=== PATIENT | female | born 1970 | race Caucasian/White ===

== ENCOUNTER → 2017-10-15 | Outpatient (CLI) | payer BC ==
[~2017-10-15] MED LIST: CYCL0.05OP BOTHEYES; ESCITALOPRAM OX20 MG PO; HYDSUL200; LEVO.5OPSO; LEVSOD125 PO; NITR100CA PO; OMEPRAZOLE MAGN20 MG PO; TELM20; TELMISARTAN40 MG PO
[2017-10-18 15:11] LABS: HPV Genotype 16 Not Detected (NOTDET); HPV Genotype 18 Not Detected (NOTDET)
[2017-11-03 09:26] LABS: HPV High Risk Other Not Detected (NOTDET)
== END | disposition home or self-care (01) ==
LOC: LAB 15:04
PROVIDERS: Obstetrics & Gynecology Gynecology
DX: Z12.4 Encounter for screening for malignant neoplasm of cervix (principal)
CPT/HCPCS: 87624; G0123

== ENCOUNTER 2019-02-02 12:31 | Day surgery (SDC) | payer BC ==
[~2019-02-02] VITALS: Ht 172.7 cm; Wt 87.5 kg
[~2019-02-02 12:31] MED LIST changes: +ABAT250V; +ESCI10 PO; +HYDSUL200 PO; +Mirapex0.25 MG PO; +SYNTHROID0.2 MG PO; +SYNTHROID100 MC2 PO; +VITAMIN D35000 UNI1 PO
--- NOTE | 2019-02-02 15:02 | NUR ---
02/02/19 1501 Dilcia Albarran V PT REPORTS PAIN FOR WHICH SHE HAS BEEN MEDICATED FOR PER ORDERS.
[2019-06-08] MEDS ORDERED: IBUP800 (13:28)
== END 2019-02-02 15:45 | disposition home or self-care (01) ==
LOC: ORSCSDS 12:31
PROVIDERS: Obstetrics & Gynecology Gynecology
PROC: 0UB98ZZ Excision of Uterus, Via Natural or Artificial Opening Endoscopic (ICD-10-PCS; principal; 2019-02-02 14:00)
PROC: 0UB98ZX Excision of Uterus, Via Natural or Artificial Opening Endoscopic, Diagnostic (ICD-10-PCS; principal; 2019-02-02 14:00)
DX: N92.4 Excessive bleeding in the premenopausal period (principal); D25.9 Leiomyoma of uterus, unspecified; N84.0 Polyp of corpus uteri; I10 Essential (primary) hypertension; Z79.899 Other long term (current) drug therapy
CPT/HCPCS: 88305; J0690; J1100; J1885; J2250; J2405; J2704; J3010; J7120

== ENCOUNTER 2019-06-15 08:36 | Day surgery (SDC) | payer BC ==
[~2019-06-15] VITALS: Ht 172.7 cm; Wt 88.6 kg
[~2019-06-15 08:36] MED LIST changes: +IBUP800
[2019-06-15] MEDS ORDERED: TELM20 (09:30)
--- NOTE | 2019-06-15 09:45 | NUR ---
06/15/19 0945 RAFAEL MARSHALL 1 IV ATTEMPT BY AYDEN VEIN BLEW 2 IV ATTEMPT BY AYDEN IN RHAND SUCCESSFUL
== END 2019-06-15 11:10 | disposition home or self-care (01) ==
LOC: ORSCSDS 08:36
PROVIDERS: Internal Medicine Gastroenterology
PROC: 0DJD8ZZ Inspection of Lower Intestinal Tract, Via Natural or Artificial Opening Endoscopic (ICD-10-PCS; principal; 2019-06-15 10:00)
DX: D50.9 Iron deficiency anemia, unspecified (principal); K64.8 Other hemorrhoids; I10 Essential (primary) hypertension; E03.9 Hypothyroidism, unspecified; M32.9 Systemic lupus erythematosus, unspecified; E78.5 Hyperlipidemia, unspecified; Z79.899 Other long term (current) drug therapy
CPT/HCPCS: J2704; J7120

== ENCOUNTER 2019-07-08 06:42 | Day surgery (SDC) | payer BC ==
[~2019-07-08] VITALS: Ht 172.7 cm; Wt 91.4 kg
[~2019-07-08 06:42] MED LIST changes: +CYCL0.05OP
--- NOTE | 2019-07-08 07:37 | NUR ---
07/08/19 0737 Eva Espinosa 1 TRY HAND RIGHT VALVE 2 TRY WRIST RIGHT NOT GOOD FLUID RUN 3 TRY AC RIGHT NOT GOOD FLOW 4 TRY GOOD WRIST LEFT
== END 2019-07-08 08:55 | disposition home or self-care (01) ==
LOC: ORSCSDS 06:42
PROVIDERS: Internal Medicine Gastroenterology
PROC: 0DB98ZX Excision of Duodenum, Via Natural or Artificial Opening Endoscopic, Diagnostic (ICD-10-PCS; principal; 2019-07-08 08:00)
PROC: 0DB48ZX Excision of Esophagogastric Junction, Via Natural or Artificial Opening Endoscopic, Diagnostic (ICD-10-PCS; principal; 2019-07-08 08:00)
PROC: 0DB68ZX Excision of Stomach, Via Natural or Artificial Opening Endoscopic, Diagnostic (ICD-10-PCS; principal; 2019-07-08 08:00)
DX: D50.9 Iron deficiency anemia, unspecified (principal); K20.9 Esophagitis, unspecified; K31.7 Polyp of stomach and duodenum; K44.9 Diaphragmatic hernia without obstruction or gangrene; E03.9 Hypothyroidism, unspecified; I10 Essential (primary) hypertension; Z79.899 Other long term (current) drug therapy
CPT/HCPCS: 88305; 88342; J0330; J0461; J2405; J2704; J7120

== ENCOUNTER 2024-11-23 06:58 | Day surgery (SDC) | payer BC ==
[~2024-11-23] VITALS: Ht 172.7 cm; Wt 82.0 kg
[2024-11-23] MEDS ORDERED: Lactated Ringer's 1,000 ML IV ONE ×2 (07:17→08:47)
[2024-11-23] MEDS ORDERED: propofoL 50 ML IV ONE ×3 (07:17→09:25)
[2024-11-23] MEDS ORDERED: OMEPRAZOLE MAGN20 MG (07:57)
[2024-11-23] MEDS ORDERED: FAMO20 (07:59)
[2024-11-23] MEDS ORDERED: PROG100 (07:59)
[2024-11-23] MEDS ORDERED: DOCU100 (08:00)
[2024-11-23] MEDS ORDERED: ZEPBOUND2.5 MG/0.1 (08:01)
[2024-11-23] MEDS ORDERED: Benzocaine Oral Spray 0.5ML UD ONE (08:44)
[2024-11-23 10:22] VITALS: BP 99/66
== END 2024-11-23 10:10 | disposition home or self-care (01) ==
LOC: ORSCSDS 06:58
PROVIDERS: Internal Medicine Gastroenterology
PROC: 0DJ08ZZ Inspection of Upper Intestinal Tract, Via Natural or Artificial Opening Endoscopic (ICD-10-PCS; principal; 2024-11-23 09:00)
PROC: 0DBH8ZX Excision of Cecum, Via Natural or Artificial Opening Endoscopic, Diagnostic (ICD-10-PCS; principal; 2024-11-23 09:00)
DX: K21.9 Gastro-esophageal reflux disease without esophagitis (principal); D12.0 Benign neoplasm of cecum; Z12.11 Encounter for screening for malignant neoplasm of colon; I10 Essential (primary) hypertension; E78.5 Hyperlipidemia, unspecified; E07.9 Disorder of thyroid, unspecified; Z98.84 Bariatric surgery status; G47.33 Obstructive sleep apnea (adult) (pediatric); Z79.899 Other long term (current) drug therapy
CPT/HCPCS: 88305; A9270; J2704; J7120